=== PATIENT | female | born 1990 | race Hispanic/Latino ===

== ENCOUNTER 2017-04-29 12:24 | Emergency (ER) | payer MEDICAID, OTHER ==
[2017-04-29 13:12] LABS: BASOPHILS % (AUTO) 0.4 % (0.0-5.0); EOSINOPHILS % (AUTO) 0.2 % (0.0-8.0); HEMATOCRIT 40.8 % (36-48); LYMPHOCYTES % (AUTO) 18.6 % (21.0-51.0); MEAN CORPUSCULAR HEMOGLOBIN 30.8 pg (27.0-33.0); MEAN CORPUSCULAR VOLUME 90.5 fL (79-99); MONOCYTES % (AUTO) 5.7 % (3.0-13.0); NEUTROPHILS % (AUTO) 75.1 % (40.0-77.0); PLATELET COUNT (AUTO) 257 K/uL (130-400); RED BLOOD CELL COUNT(AUTO) 4.51 MIL/uL (4.00-5.50); RED CELL DISTRIBUTION WIDTH 13.9 % (11.0-15.5); WHITE BLOOD COUNT (AUTO) 9.3 K/uL (4.8-10.8)
[2017-04-29 13:13] LABS: APPEARANCE,URINE Clear (CLEAR); BILIRUBIN,URINE Negative (NEGATIVE); COLOR,URINE Yellow (YELLOW); GLUCOSE, URINE (UA) Negative (NEGATIVE); KETONES,URINE Negative (NEGATIVE); LEUKOCYTE ESTERASE ,URINE Trace (NEGATIVE); NITRATE,URINE Negative (NEGATIVE); OCCULT BLOOD,URINE Small (NEGATIVE); PROTEIN,URINE Negative (NEGATIVE); UROBILINOGEN,URINE 0.2 mg/dL (0.2-1.0)
[2017-04-29 13:20] LABS: BACTERIA,URINE Rare /HPF (None Seen); RBC,URINE 0-1 /HPF (0-1); SQUAMOUS EPITHELIAL CELL,UR Few /LPF (0-2); WBC,URINE 0-1 /HPF (0-1)
[2017-04-29] MEDS ORDERED: ONDANSETRON HCL 4 MG/2 ML VIAL ONE (13:24)
[2017-04-29] MEDS ORDERED: SODIUM CHLORIDE 0.9% 1000ML 1,000 ML IV ONE (13:24)
[2017-04-29 13:43] LABS: CREATININE 0.6 mg/dL (0.5-1.5)
[2017-04-29 13:49] LABS: ALBUMIN 4.2 g/dL (3.5-5.0); BILIRUBIN,TOTAL 0.4 mg/dL (0.2-1.0); TOTAL PROTEIN, SERUM 8.4 g/dL (6.0-8.3)
== END 2017-04-29 15:14 | disposition home or self-care (01) ==
LOC: EDH 12:24
DX: O34.81 Maternal care for other abnormalities of pelvic organs, first trimester (principal); Z3A.01 Less than 8 weeks gestation of pregnancy; Z88.2 Allergy status to sulfonamides
CPT/HCPCS: 36415; 76700; 76817; 80053; 81001; 83690; 84702; 85025; 86900; 86901; 96361; 96374; 99285; J2405; J7030

== ENCOUNTER 2017-05-19 14:21 | Emergency (ER) | payer MEDICAID | END 2017-05-19 16:10 | disposition home or self-care (01) | LOC: EDH 14:21 | DX: O9A.211 Injury, poisoning and certain other consequences of external causes complicating pregnancy, first trimester (principal); S39.81XA Other specified injuries of abdomen, initial encounter; Z3A.01 Less than 8 weeks gestation of pregnancy; Z88.2 Allergy status to sulfonamides; V49.49XA Driver injured in collision with other motor vehicles in traffic accident, initial encounter; Y93.89 Activity, other specified; Y92.481 Parking lot as the place of occurrence of the external cause; Y99.8 Other external cause status | CPT/HCPCS: 76801 ==

== ENCOUNTER 2017-12-01 10:12 | Inpatient (IN) | payer MEDICAID ==
[~2017-12-01] VITALS: Ht 162.6 cm; Wt 86.2 kg
[2017-12-01] MEDS: AMPICILLIN 2GM+NS 100ML 100 ML IV SCH ×2 (12:49→18:37)
[2017-12-01] MEDS: LACTATED RINGERS 1000ML 1,000 ML IV PRN (12:49)
[2017-12-01] MEDS: DEXAMETHASONE SOD PHOSPHATE 4 MG/ML 1ML VIAL IM SCH ×2 (12:49→18:38)
[2017-12-01 12:58] LABS: HEMATOCRIT 35.7 % (36-48); MEAN CORPUSCULAR HEMOGLOBIN 29.4 pg (27.0-33.0); MEAN CORPUSCULAR HGB CONC 32.8 g/dL (32.0-36.0); MEAN CORPUSCULAR VOLUME 89.6 fL (79-99); PLATELET COUNT (AUTO) 184 K/uL (130-400); RED BLOOD CELL COUNT(AUTO) 3.98 MIL/uL (4.00-5.50); RED CELL DISTRIBUTION WIDTH 15.1 % (11.0-15.5)
[2017-12-02] MEDS: AMPICILLIN 2GM+NS 100ML 100 ML IV SCH ×2 (01:12→06:41)
[2017-12-02] MEDS: DEXAMETHASONE SOD PHOSPHATE 4 MG/ML 1ML VIAL IM SCH ×2 (01:13→06:41)
[2017-12-02] MEDS: LACTATED RINGERS 1000ML 1,000 ML IV PRN (06:41)
[2017-12-02 07:30] LABS: HEPATITIS Bs ANTIGEN SCREEN P Negative (Negative)
[2017-12-03] MEDS: LACTATED RINGERS 1000ML 1,000 ML IV PRN (04:11)
[2017-12-03 07:08] LABS: BASOPHILS % (AUTO) 0.4 % (0.0-5.0); EOSINOPHILS % (AUTO) 0.3 % (0.0-8.0); HEMATOCRIT 29.6 % (36-48); LYMPHOCYTES % (AUTO) 18.4 % (21.0-51.0); MEAN CORPUSCULAR HEMOGLOBIN 30.5 pg (27.0-33.0); MEAN CORPUSCULAR HGB CONC 33.6 g/dL (32.0-36.0); MEAN CORPUSCULAR VOLUME 90.7 fL (79-99); MONOCYTES % (AUTO) 7.3 % (3.0-13.0); NEUTROPHILS % (AUTO) 73.6 % (40.0-77.0); PLATELET COUNT (AUTO) 171 K/uL (130-400); RED BLOOD CELL COUNT(AUTO) 3.26 MIL/uL (4.00-5.50); RED CELL DISTRIBUTION WIDTH 14.5 % (11.0-15.5); WHITE BLOOD COUNT (AUTO) 10.8 K/uL (4.8-10.8)
[2017-12-04] MEDS: LACTATED RINGERS 1000ML 1,000 ML IV PRN (11:54)
[2017-12-05] MEDS ORDERED: GENTAMICIN SULFATE 240 MG in SODIUM CHLORIDE 0.9% 100 ML IV PRN (07:30)
[2017-12-05] MEDS ORDERED: CLINDAMYCIN 900 MG/D5% WATER 50 ML IVPB PRN (07:30)
[2017-12-05] MEDS ORDERED: CLINDAMYCIN PHOSPHATE 150 MG/1 ML 2ML VIAL IV ONE (11:45)
[2017-12-05] MEDS ORDERED: DURAMORPH PF1 MG/ML 10ML AMP IV ONE (12:10)
[2017-12-05] MEDS ORDERED: GENTAMICIN SULFATE 80 MG/2 ML VIAL IV ONE (12:15)
[2017-12-05] MEDS ORDERED: ONDANSETRON HCL 4 MG/2 ML VIAL ONE ×2 (12:39→14:12)
[2017-12-05] MEDS ORDERED: OXYTOCIN 10 UNIT/1ML 10ML VIAL ONE (12:51)
[2017-12-05] MEDS ORDERED: EPINEPHRINE 1 MG/ML AMPULE ONE (12:53)
[2017-12-05] MEDS ORDERED: MIDAZOLAM HCL 1 MG/ML 2ML VIAL ONE (12:58)
[2017-12-05] MEDS ORDERED: MORPHINE SULFATE 2 MG/ML 1ML SYG IVP PRN (14:30)
[2017-12-05] MEDS ORDERED: HYDROCODONE/ACETAMINOPHEN 5/325 MG TAB PO PRN ×2 (14:30)
[2017-12-05] MEDS ORDERED: PROMETHAZINE HCL 25 MG/ML 1ML AMPULE IM PRN (14:30)
[2017-12-05] MEDS ORDERED: DiphenhydrAMINE HCL 50 MG/ML VIAL IVP PRN (14:30)
[2017-12-05] MEDS ORDERED: METOCLOPRAMIDE 10 MG/2 ML VIAL IVP PRN (14:30)
[2017-12-05] MEDS ORDERED: ONDANSETRON HCL 4 MG/2 ML 8 MG in SODIUM CHLORIDE 0.9% 50 ML IVP NR (14:30)
[2017-12-05] MEDS ORDERED: NALOXONE HCL 0.4 MG/1 ML ML IVP PRN ×2 (14:30)
[2017-12-05] MEDS ORDERED: ONDANSETRON HCL 4 MG/2 ML VIAL IVP PRN ×2 (14:30)
[2017-12-05] MEDS ORDERED: EPHEDRINE SULFATE 50 MG/ML AMPULE IVP PRN (14:30)
[2017-12-05 15:16] VITALS: BP 122/70
[2017-12-05] MEDS ORDERED: MEPERIDINE-PF 75 MG/ML SYG IM PRN (17:45)
[2017-12-05] MEDS ORDERED: CEFAZOLIN SODIUM 1 GM VIAL IVP SCH (17:45)
[2017-12-05 20:20] VITALS: BP 109/70
[2017-12-05] MEDS: DEXTROSE 5 %-0.45 % NACL 1,000 ML IV PRN (20:51)
[2017-12-05] MEDS: CLINDAMYCIN 900 MG/D5% WATER 50 ML IV SCH (20:51)
[2017-12-05 23:50] VITALS: BP 123/67
[2017-12-06] MEDS: DEXTROSE 5 %-0.45 % NACL 1,000 ML IV PRN (03:16)
[2017-12-06] MEDS: CLINDAMYCIN 900 MG/D5% WATER 50 ML IV SCH ×2 (03:17→07:15)
[2017-12-06 03:30] VITALS: BP 116/58
[2017-12-06 06:06] LABS: HEMATOCRIT 30.9 % (36-48); MEAN CORPUSCULAR HEMOGLOBIN 30.1 pg (27.0-33.0); MEAN CORPUSCULAR HGB CONC 34.1 g/dL (32.0-36.0); MEAN CORPUSCULAR VOLUME 88.5 fL (79-99); PLATELET COUNT (AUTO) 162 K/uL (130-400); RED BLOOD CELL COUNT(AUTO) 3.49 MIL/uL (4.00-5.50); RED CELL DISTRIBUTION WIDTH 14.2 % (11.0-15.5); WHITE BLOOD COUNT (AUTO) 9.1 K/uL (4.8-10.8)
[2017-12-06 08:02] VITALS: BP 97/55
[2017-12-06] MEDS ORDERED: DIPHENHYDRAMINE HCL 25 MG CAPSULE PO PRN (08:15)
[2017-12-06] MEDS ORDERED: HYDROCODONE/ACETAMINOPHEN 5/325 MG TAB PO PRN (08:15)
[2017-12-06] MEDS ORDERED: ACETAMINOPHEN EXTRA STRENGTH 500 MG TABLET PO PRN (08:15)
[2017-12-06] MEDS ORDERED: ACETAMINOPHEN-CODEINE 300/30MG TAB PO PRN (08:15)
[2017-12-06] MEDS ORDERED: BISACODYL 10 MG SUPP.RECT RC PRN (08:15)
[2017-12-06] MEDS: SIMETHICONE 80 MG TAB.CHEW PO PRN ×4 (09:29→22:04)
[2017-12-06] MEDS: DOCUSATE SODIUM 100 MG CAP PO SCH ×2 (09:29→22:04)
[2017-12-06] MEDS: IBUPROFEN 600 MG TABLET PO PRN ×2 (09:30→15:37)
[2017-12-06] MEDS: DIPH,PERTUSS(ACELL),TET VAC/PF 0.5 ML VIAL IM SCH (10:55)
[2017-12-06 12:12] VITALS: BP 98/63
[2017-12-06 15:49] VITALS: BP 118/75
[2017-12-06 20:36] VITALS: BP 98/60
[2017-12-07 00:22] VITALS: BP 96/58
[2017-12-07 04:53] VITALS: BP 101/56
[2017-12-07 07:33] VITALS: BP 108/61
[2017-12-07] MEDS: DIPH,PERTUSS(ACELL),TET VAC/PF 0.5 ML VIAL IM SCH (08:15)
[2017-12-07] MEDS: SIMETHICONE 80 MG TAB.CHEW PO PRN ×4 (08:25→21:50)
[2017-12-07] MEDS: DOCUSATE SODIUM 100 MG CAP PO SCH ×2 (08:25→21:50)
[2017-12-07] MEDS: IBUPROFEN 600 MG TABLET PO PRN ×3 (08:26→21:51)
[2017-12-07 11:31] VITALS: BP 104/61
[2017-12-07 16:20] VITALS: BP 114/53
[2017-12-07] MEDS ORDERED: PNV71COM3 PO (20:13)
[2017-12-08 01:33] VITALS: BP 120/75
[2017-12-08 05:07] VITALS: BP 100/54
[2017-12-08 07:41] VITALS: BP 110/55
[2017-12-08 11:30] VITALS: BP 114/66
[2017-12-08 15:11] VITALS: BP 116/72
[2017-12-08] MEDS: IBUPROFEN 600 MG TABLET PO PRN (17:57)
[2017-12-08] MEDS: SIMETHICONE 80 MG TAB.CHEW PO PRN (17:57)
== END 2017-12-08 18:20 | disposition home or self-care (01) | DRG 540 ==
LOC: EDH 10:12 → LDH 10:13 → OBSVTOIN 10:13 → LDH 12:47 → WSH 12-05 15:10
PROVIDERS: ADMIT Obstetrics & Gynecology; ATTEND Obstetrics & Gynecology
PROC: 10D00Z1 Extraction of Products of Conception, Low, Open Approach (ICD-10-PCS; principal; 2017-12-05 12:00)
PROC: 3E0234Z Introduction of Serum, Toxoid and Vaccine into Muscle, Percutaneous Approach (ICD-10-PCS; 2017-12-07)
DX: O42.913 Preterm premature rupture of membranes, unspecified as to length of time between rupture and onset of labor, third trimester (principal); O34.211 Maternal care for low transverse scar from previous cesarean delivery; Z37.0 Single live birth; Z88.2 Allergy status to sulfonamides; Z3A.34 34 weeks gestation of pregnancy; Z23 Encounter for immunization
CPT/HCPCS: 36415; 59510; 76805; 76815; 85025; 85027; 86592; 86850; 86900; 86901; 87340; 90715; 96360; 96361; A4344; A4450; A4606; G0008; J0171; J0290; J1100; J1580; J2250; J2274; J2405; J2590; J3490; J7120; Q2038

== ENCOUNTER 2018-08-06 10:10 | Emergency (ER) | payer MEDICAID, OTHER ==
[~2018-08-06 10:10] MED LIST: PNV71COM3 PO
[2018-08-06 10:43] LABS: APPEARANCE,URINE Clear (CLEAR); BILIRUBIN,URINE Negative (NEGATIVE); COLOR,URINE Yellow (YELLOW); GLUCOSE, URINE (UA) Negative (NEGATIVE); KETONES,URINE Negative (NEGATIVE); LEUKOCYTE ESTERASE ,URINE Negative (NEGATIVE); NITRATE,URINE Negative (NEGATIVE); OCCULT BLOOD,URINE Large (NEGATIVE); PROTEIN,URINE Negative (NEGATIVE); UROBILINOGEN,URINE 0.2 mg/dL (0.2-1.0)
[2018-08-06 10:46] LABS: HCG,QUAL RESULT NEGATIVE (NEGATIVE)
[2018-08-06 11:00] LABS: BACTERIA,URINE Rare /HPF (None Seen); SQUAMOUS EPITHELIAL CELL,UR Rare /HPF (0-2); WBC,URINE None Seen /HPF (0-1)
== END 2018-08-06 11:15 | disposition home or self-care (01) ==
LOC: EDH 10:10
DX: N92.0 Excessive and frequent menstruation with regular cycle (principal); Z88.2 Allergy status to sulfonamides; Z98.890 Other specified postprocedural states
CPT/HCPCS: 81001; 81025

== ENCOUNTER 2018-08-07 21:57 | Emergency (ER) | payer SELFPAY ==
[2018-08-07] MEDS ORDERED: PREDNISONE 20 MG TABLET ONE (22:42)
[2018-08-07] MEDS ORDERED: KETOROLAC TROMETHAMINE 60 MG/2 ML VIAL ONE (22:42)
[2018-08-07] MEDS ORDERED: LIDOCAINE 5% TOPICAL PATCH TP ONE (22:43)
== END 2018-08-07 23:37 | disposition home or self-care (01) ==
LOC: EDH 21:57
DX: G51.0 Bell's palsy (principal); M62.830 Muscle spasm of back; Z88.2 Allergy status to sulfonamides
CPT/HCPCS: 96372; 99283; J1885

== ENCOUNTER 2019-01-16 13:24 | Emergency (ER) | payer OTHER ==
[2019-01-16 14:03] LABS: APPEARANCE,URINE Clear (CLEAR); BILIRUBIN,URINE Negative (NEGATIVE); COLOR,URINE Yellow (YELLOW); GLUCOSE, URINE (UA) Negative (NEGATIVE); KETONES,URINE Negative (NEGATIVE); LEUKOCYTE ESTERASE ,URINE Trace (NEGATIVE); NITRATE,URINE Negative (NEGATIVE); OCCULT BLOOD,URINE Small (NEGATIVE); PH,URINE 6.5 (5.0-8.0); PROTEIN,URINE Negative (NEGATIVE)
[2019-01-16 14:06] LABS: HCG,QUAL RESULT NEGATIVE (NEGATIVE)
[2019-01-16 14:15] LABS: BACTERIA,URINE Moderate /HPF (None Seen); RBC,URINE 0-1 /HPF (0-1); WBC,URINE 0-1 /HPF (0-1)
[2019-01-16] MEDS ORDERED: ONDANSETRON ODT 4 MG TAB ONE (14:18)
[2019-01-16] MEDS ORDERED: ACETAMINOPHEN EXTRA STRENGTH 500 MG TABLET ONE (14:18)
[2019-01-16 14:39] LABS: BASOPHILS % (AUTO) 0.1 % (0.0-5.0); EOSINOPHILS % (AUTO) 0.7 % (0.0-8.0); HEMATOCRIT 38.7 % (36-48); LYMPHOCYTES % (AUTO) 8.7 % (21.0-51.0); MEAN CORPUSCULAR HEMOGLOBIN 30.9 pg (27.0-33.0); MEAN CORPUSCULAR HGB CONC 34.4 g/dL (32.0-36.0); MEAN CORPUSCULAR VOLUME 89.7 fL (79-99); MONOCYTES % (AUTO) 6.3 % (3.0-13.0); NEUTROPHILS % (AUTO) 84.2 % (40.0-77.0); NUCLEATED RED BLOOD CELLS 0.1 % (0.0-0.19); PLATELET COUNT (AUTO) 228 K/uL (130-400); RED BLOOD CELL COUNT(AUTO) 4.31 MIL/uL (4.00-5.50); RED CELL DISTRIBUTION WIDTH 13.1 % (11.0-15.5)
[2019-01-16 14:53] LABS: CREATININE 0.7 mg/dL (0.5-1.5); POTASSIUM 3.5 mmol/L (3.5-5.1)
[2019-01-16 14:57] LABS: ALBUMIN 3.5 g/dL (3.5-5.0); BILIRUBIN,TOTAL 0.7 mg/dL (0.2-1.0); TOTAL PROTEIN, SERUM 7.4 g/dL (6.0-8.3)
== END 2019-01-16 15:48 | disposition home or self-care (01) ==
LOC: EDH 13:24
DX: J10.1 Influenza due to other identified influenza virus with other respiratory manifestations (principal); Z88.2 Allergy status to sulfonamides
CPT/HCPCS: 36415; 80053; 81001; 81025; 83690; 85025; 87804

== ENCOUNTER 2022-07-17 21:37 | Emergency (ER) | payer MEDICAID ==
[~2022-07-17] VITALS: Ht 165.1 cm; Wt 90.7 kg
[2022-07-17] MEDS ORDERED: ONDANSETRON 4MG INJ IVP ONE (22:30)
[2022-07-17] MEDS ORDERED: 0.9%NACL 1000ML 1,000 ML IV ONE (22:30)
[2022-07-17] MEDS ORDERED: MORPHINE 2 MG SYG IVP ONE (22:30)
[2022-07-17 22:55] LABS: BASOPHILS % (AUTO) 0.1 % (0.0-5.0); EOSINOPHILS % (AUTO) 0.2 % (0.0-8.0); HEMATOCRIT 42.9 % (36-48); MEAN CORPUSCULAR HEMOGLOBIN 30.1 pg (27.0-33.0); MEAN CORPUSCULAR HGB CONC 33.6 g/dL (32.0-36.0); MEAN CORPUSCULAR VOLUME 89.6 fL (79-99); MONOCYTES % (AUTO) 3.3 % (3.0-13.0); NEUTROPHILS % (AUTO) 89.1 % (40.0-77.0); PLATELET COUNT (AUTO) 211 K/uL (130-400); RED BLOOD CELL COUNT(AUTO) 4.79 MIL/uL (4.00-5.50); RED CELL DISTRIBUTION WIDTH 13.4 % (11.0-15.5); WHITE BLOOD COUNT (AUTO) 9.7 K/uL (4.8-10.8)
[2022-07-17 22:59] LABS: APPEARANCE,URINE CLOUDY (CLEAR); BILIRUBIN,URINE NEGATIVE (NEGATIVE); COLOR,URINE YELLOW (YELLOW); GLUCOSE, URINE (UA) NEGATIVE (NEGATIVE); KETONES,URINE 100 mg/dL (NEGATIVE); LEUKOCYTE ESTERASE ,URINE NEGATIVE Leu/uL (NEGATIVE); NITRATE,URINE NEGATIVE (NEGATIVE); PH,URINE 7.5 (5.0-8.0); PROTEIN,URINE 20 mg/dL (NEGATIVE)
[2022-07-17 23:09] LABS: MUCUS,URINE RARE LPF (None Seen); SQUAMOUS EPITHELIAL CELL,UR MOD /HPF (0-2)
[2022-07-17 23:11] LABS: CREATININE 0.6 mg/dL (0.5-1.5); POTASSIUM 3.1 mmol/L (3.5-5.1)
[2022-07-17 23:15] LABS: ALBUMIN 3.9 g/dL (3.5-5.0); TOTAL PROTEIN, SERUM 8.5 g/dL (6.0-8.3)
[2022-07-18] MEDS ORDERED: ONDA-104 PO (00:04)
[2022-07-18 00:22] VITALS: BP 101/55
[2022-07-18] MEDS ORDERED: MORPHINE 2 MG SYG IVP ONE (00:30)
== END 2022-07-18 00:39 | disposition home or self-care (01) ==
LOC: EDH 21:37
DX: O26.12 Low weight gain in pregnancy, second trimester (principal); K80.50 Calculus of bile duct without cholangitis or cholecystitis without obstruction; Z3A.16 16 weeks gestation of pregnancy; Z98.890 Other specified postprocedural states; Z88.5 Allergy status to narcotic agent
CPT/HCPCS: 99285; 96374; 76705; 76805; 96361; 96375; 80053; 83690; 85025; 81001; 36415; 96376; J7030; J2405

== ENCOUNTER 2022-10-04 12:46 | Emergency (ER) | payer MEDICAID ==
[~2022-10-04] VITALS: Ht 165.1 cm; Wt 92.1 kg
[~2022-10-04 12:46] MED LIST changes: +ONDA-104 PO
[2022-10-04 12:49] VITALS: BP 123/67
== END 2022-10-04 15:37 | disposition left against medical advice (07) ==
LOC: EDH 12:46
DX: R50.9 Fever, unspecified (principal); R11.2 Nausea with vomiting, unspecified; Z53.21 Procedure and treatment not carried out due to patient leaving prior to being seen by health care provider
CPT/HCPCS: 99281